=== PATIENT | female | born 1955 | race Caucasian/White ===

== ENCOUNTER 2021-04-07 13:06 | Outpatient (REF) | payer BC, SELFPAY ==
--- NOTE | ~2021-04-07 | XR_ITS ---
EXAMINATION: XR HAND, LEFT CLINICAL INFORMATION: Left hand pain COMPARISON: None TECHNIQUE: PA, lateral, and oblique views of the left hand. FINDINGS: There is mild osteopenia. No visible acute fracture or dislocation seen. Mild decreased PIP and DIP joint spaces noted with minimal periarticular spurring PIP joint fifth digit, DIP joint second and third digits. There is 5 mm soft tissue calcification medial wrist probably old injury. There is small enthesophyte and hypertrophic bony changes tip of ulnar styloid process. No soft tissue swelling seen. XR/XR hand LT min 3V IMPRESSION: Mild osteopenia with degenerative changes in the PIP and DIP joints. No visible acute fracture or dislocation. The soft tissue ossification/calcification along the lateral wrist ulnar aspect. There is moderate and to the fat along the tip of ulnar styloid process.
== END 2021-04-07 13:07 | disposition home or self-care (01) ==
LOC: HO.XRAY 13:06
PROVIDERS: PCP Family Medicine; Visit Provider Internal Medicine
DX: M79.89 Other specified soft tissue disorders (principal)
CPT/HCPCS: 73130